=== PATIENT | male | born 1980 | race Caucasian/White ===

== ENCOUNTER 2017-10-29 15:09 | Emergency (ER) | payer OTHER ==
[2017-10-29] MEDS ORDERED: SODIUM CHLORIDE 0.9% 1,000 ML IV ONE (15:36)
[2017-10-29] MEDS ORDERED: KETOROLAC 60 MG/2 ML VIAL IVP STA (15:36)
--- NOTE | 2017-10-29 15:39 | ED Physician Documentation ---
History of Present Illness - Stated complaint Stated Complaint: TORRES/NAUSEA/DIZZY/TROUBLE BREATHING - Chief complaint Chief Complaint: General - History obtained from History obtained from: Patient - History of Present Illness Timing: Yesterday (He developed a gradual onset headache over his maxillary sinuses yesterday with nasal congestion and he describes neck stiffness and episode today which sounds like a panic attack were although he was breathing normally he felt like he could not get enough air. That scared him. It is better now. He denies any fevers. No recent foreign travel.) Review of Systems Constitutional: reports: Chills. denies: Fever Nose: reports: Rhinorrhea / runny nose, Congestion Throat: denies: Sore throat Respiratory: reports: Dyspnea (gone). denies: Cough GI: reports: Nausea. denies: Abdominal Pain PD PAST MEDICAL HISTORY - Past Medical History Past Medical History: Yes Cardiovascular: Murmur Musculoskeletal: Gout - Past Surgical History Past Surgical History: Yes General: Other - Present Medications Home Medications: Ambulatory Orders Medication Instructions Recorded Confirmed Ibuprofen [Motrin] 800 mg PO Q8H PRN #30 tablet 09/10/13 02/10/15 Allopurinol 1 tab PO DAILY 10/29/17 10/29/17 Amox/Clav 875/125 [Augmentin 1 tab PO BID 10 Days #20 tablet 10/29/17 875/125] Colchicine 1 tab PO DAILY 10/29/17 10/29/17 Meclizine [Antivert] 25 mg PO Q6H PRN #15 tablet 10/29/17 - Allergies Allergies/Adverse Reactions: Allergies Allergy/AdvReac Type Severity Reaction Status Date / Time "brain dye" Allergy Unknown Uncoded 10/29/17 15:17 - Social History Does the pt smoke?: Yes Smoking Status: Current every day smoker Does the pt drink ETOH?: No Does the pt have substance abuse?: No - Immunizations Immunizations are current?: Yes - POLST Patient has POLST: No PD ED PE NORMAL - Vitals Vital signs reviewed: Yes - General General: Alert and oriented X 3, No acute distress - HEENT HEENT: PERRL, EOMI - Neck Neck: Supple, no meningeal sign (Despite the complaints of neck stiffness, his neck is completely supple without pain with flexion or extension even when extreme.) - Cardiac Cardiac: RRR, No murmur - Respiratory Respiratory: No respiratory distress, Clear bilaterally - Abdomen Abdomen: Non tender - Extremities Extremities: No edema, No calf tenderness / cord - Neuro Neuro: Alert and oriented X 3, Normal speech - Psych Psych: Normal mood, Normal affect Results - Vitals Vitals: Vital Signs - 24 hr 10/29/17 15:12 Temperature 36.6 C Heart Rate 75 Respiratory 16 Rate Blood Pressure 143/85 H O2 Saturation 95 Oxygen O2 Source Room air - Labs Labs: Laboratory Tests 10/29/17 10/29/17 10/29/17 16:11 16:11 16:11 WBC 8.0 RBC 5.28 Hgb 16.3 Hct 47.2 MCV 89.4 MCH 30.9 MCHC 34.6 RDW 13.3 Plt Count 238 MPV 8.6 Neut # (Auto) 4.7 Lymph # (Auto) 2.1 [place] # (Auto) 0.8 Eos # (Auto) 0.3 Baso # (Auto) 0.1 Absolute Nucleated RBC 0.01 Nucleated RBC % 0.1 VBG Total Hgb 16.7 VBG Oxyhemoglobin 92 L VBG Carboxyhemoglobin 4.2 H VBG Methemoglobin 0.3 Sodium 137 Potassium 3.8 Chloride 105 Carbon Dioxide 24 Anion Gap 8.0 BUN 15 Creatinine 0.8 Estimated GFR (MDRD) 108 Glucose 100 Calcium 9.1 Total Bilirubin 0.4 AST 38 ALT 57 Alkaline Phosphatase 57 Total Protein 7.3 Albumin 4.4 Globulin 2.9 Albumin/Globulin Ratio 1.5 Lipase 30 PD MEDICAL DECISION MAKING - ED course ED course: 37-year-old gentleman with a severe sinus headache. Meningitis was considered given his complaints of neck stiffness but he has no meningismus, no white count , and on repeat examination at 5 PM prior to discharge, still no meningismus. He was feeling better after IV fluids and Toradol. - Sepsis Event Vital Signs: Vital Signs - 24 hr 10/29/17 15:12 Temperature 36.6 C Heart Rate 75 Respiratory 16 Rate Blood Pressure 143/85 H O2 Saturation 95 Oxygen O2 Source Room air Departure - Departure Disposition: 01 Home, Self Care Clinical Impression: Sinusitis Qualifiers: Sinusitis location: maxillary Chronicity: acute Recurrence: recurrent Qualified Code(s): J01.01 - Acute recurrent maxillary sinusitis Condition: Good Record reviewed to determine appropriate education?: Yes Instructions: ED Sinusitis Abx Tx Prescriptions: Amox/Clav 875/125 [Augmentin 875/125] 1 tab PO BID 10 Days #20 tablet Meclizine [Antivert] 25 mg PO Q6H PRN #15 tablet PRN Reason: Dizziness Comments: Call your doctor to arrange a follow-up appointment, make the next available appointment. In the interim, return anytime if worse or if new symptoms develop. Your blood pressure was elevated today on check into the emergency department. This does not mean that you have hypertension, it is a common phenomenon to come to the emergency department and have elevated blood pressure. I recommend that you see your primary care physician within the week to have it rechecked when you are feeling better.
[2017-10-29 16:37] LABS: BASOPHILS # (AUTO) 0.1 10^3/uL (0.0-0.1); BASOPHILS % (AUTO) 1.3 %; EOSINOPHILS # (AUTO) 0.3 10^3/uL (0.0-0.7); EOSINOPHILS % (AUTO) 3.6 %; HGB - HEMOGLOBIN 16.3 g/dL (14.0-18.0); LYMPHOCYTES # (AUTO) 2.1 10^3/uL (1.5-3.5); LYMPHOCYTES % (AUTO) 26.8 %; MEAN CORPUSCULAR HEMOGLOBIN 30.9 pg (27.0-31.0); MEAN CORPUSCULAR HGB CONC 34.6 g/dL (32.0-36.0); MEAN CORPUSCULAR VOLUME 89.4 fL (80.0-94.0); MEAN PLATELET VOLUME 8.6 fL (7.4-11.4); MONOCYTES # (AUTO) 0.8 10^3/uL (0.0-1.0); MONOCYTES % (AUTO) 9.5 %; NEUTROPHILS # (AUTO) 4.7 10^3/uL (1.5-6.6); NEUTROPHILS % (AUTO) 58.8 %; PLT - PLATELET COUNT 238 10^3/uL (130-450); RED BLOOD COUNT 5.28 10^6/uL (4.70-6.10); RED CELL DISTRIBUTION WIDTH 13.3 % (12.0-15.0)
[2017-10-29 16:49] LABS: ALBUMIN 4.4 g/dL (3.2-5.5); ALBUMIN/GLOBULIN RATIO 1.5 (1.0-2.2); BILIRUBIN,TOTAL 0.4 mg/dL (0.2-1.0); CALCIUM 9.1 mg/dL (8.5-10.3); CREATININE 0.8 mg/dL (0.6-1.2); TOTAL PROTEIN 7.3 g/dL (6.7-8.2)
[2017-10-29 17:29] VITALS: BP 131/89
== END 2017-10-29 17:47 | disposition home or self-care (01) ==
LOC: ED 15:09
DX: J01.01 Acute recurrent maxillary sinusitis (principal); R03.0 Elevated blood-pressure reading, without diagnosis of hypertension; F17.200 Nicotine dependence, unspecified, uncomplicated
CPT/HCPCS: 36415; 80053; 82375; 83690; 85025; 96361; 96374; 99283